=== PATIENT | male | born 1975 | race Hispanic/Latino ===

== ENCOUNTER 2023-03-30 18:07 | Observation (INO) | payer SELFPAY ==
[2023-03-30 20:37] VITALS: BMI 21.7
[2023-03-30] MEDS ORDERED: Acetaminophen 325 MG TAB PO PRN (21:43)
[2023-03-30] MEDS ORDERED: Ondansetron PF 4 MG/2 ML Vial IVP PRN (21:43)
[2023-03-30] MEDS ORDERED: Lorazepam 2 MG/ML VIAL IM PRN (21:51)
[2023-03-30] MEDS ORDERED: Lorazepam 1 MG TAB PO PRN (21:51)
[2023-03-30] MEDS ORDERED: Thiamine HCl 200 MG/2 ML VIAL SLOW IVP SCH (22:00)
[2023-03-30] MEDS ORDERED: Electrolyte Replacement Protocol 1 EACH FS SCH (22:00)
[2023-03-30] MEDS ORDERED: Sodium Chloride 0.9% 1,000 ML IV SCH (22:15)
[2023-03-30 22:42] LABS: Phosphorus 2.7 mg/dL (2.3-4.7)
[2023-03-30 22:43] LABS: CRP (Inflammatory) Less than 0.50 mg/dL (= or < 0.5); Magnesium 1.9 mg/dL (1.6-2.6)
[2023-03-30 22:45] LABS: Alcohol Less than 10.0 mg/dL (Less than 10); Lipase 11 U/L (8-78)
[2023-03-31 01:27] LABS: Amphetamine Not Detected (NotDetected); Barbiturates Screen Not Detected (NotDetected); Benzodiazepine Screen Not Detected (NotDetected); Cocaine Metabolite Screen Not Detected (NotDetected); Methadone Not Detected (NotDetected); Methamphetamine Not Detected (NotDetected); Opiate Screen Detected (NotDetected); Oxycodone Screen Not Detected (NotDetected); Phencyclidine (PCP) Not Detected (NotDetected); THC/Cannabinoid Screen Not Detected (NotDetected); Tricyclic Screen Not Detected (NotDetected)
[2023-03-31 05:48] LABS: #Basophils 0.1 thou/uL (0.0-0.2); #Eosinphils 0.4 thou/uL (0.0-0.7); #Monocytes 0.7 thou/uL (0.11-0.59); #Neutrophils 5.4 thou/uL (1.40-6.50); %Basophils 0.6 % (0.0-1.0); %Eosinophils 4.3 % (0.0-10.0); %Lymphocytes 29.2 % (21.0-51.0); %Monocytes 7.1 % (0.0-10.0); %Neutrophils 58.5 % (42.0-75.0); Hemoglobin 17.4 g/dL (14.0-18.0); Mean Corpuscular Hemoglobin 33.5 pg (27.0-31.0); Mean Corpuscular Volume 95.8 fl (78.0-98.0); Mean Platelet Volume 10.1 fL (7.4-10.4); Platelet Count 191 10x3/uL (130-400); RBC Distribution Width 12.9 % (11.5-14.5); Red Blood Cell (RBC) Count 5.19 mill/uL (4.70-6.10); White Blood Cell (WBC) Count 9.3 10x3/uL (4.8-10.8)
[2023-03-31 06:13] LABS: Anion Gap 13 mmol/L (10-20); BUN (Urea Nitrogen) 8 mg/dL (8.9-20.6); Calc. Creatinine Clearance 105 mL/min (70-130); Calcium 8.6 mg/dL (7.8-10.44); Carbon Dioxide 23 mmol/L (22-29); Chloride 107 mmol/L (98-107); Estimated GFR 112; Glucose 85 mg/dL (70-105); Potassium 3.5 mmol/L (3.5-5.1); Sodium 139 mmol/L (136-145)
[2023-03-31] MEDS ORDERED: Magnesium 2 GM/50 ML(in water) 2 GM in Premix Bag 1 BAG IVPB SCH (08:00)
[2023-03-31] MEDS ORDERED: Potassium Chloride 20 MEQ TAB PO SCH (08:00)
[2023-03-31] MEDS ORDERED: Multivit, Therapeutic 1 TAB PO SCH (09:00)
[2023-03-31] MEDS ORDERED: Folic Acid 1 MG TAB PO SCH (09:00)
[2023-03-31 12:07] VITALS: BP 117/75; TEMP 97.6
[2023-03-31] MEDS ORDERED: Lorazepam 1 MG TAB PO PRN (21:51)
[2023-04-01] MEDS ORDERED: Lorazepam 1 MG TAB PO PRN (21:51)
[2023-04-02] MEDS ORDERED: Thiamine 100 MG TAB PO SCH (21:00)
[2023-04-02] MEDS ORDERED: Lorazepam 0.5 MG TAB PO PRN (21:51)
== END 2023-03-31 17:12 | disposition home or self-care (01) ==
LOC: 2SW 18:07
PROVIDERS: ADMIT Internal Medicine; ATTEND Emergency Medicine
DX: R00.1 Bradycardia, unspecified (principal); K52.9 Noninfective gastroenteritis and colitis, unspecified; R03.0 Elevated blood-pressure reading, without diagnosis of hypertension; F10.20 Alcohol dependence, uncomplicated; F17.210 Nicotine dependence, cigarettes, uncomplicated
CPT/HCPCS: 36415; 80048; 80306; 80307; 83690; 83735; 84100; 84443; 85025; 86140; 93306; 96374; 96375; G0378; J3411; J3475; J7050